=== PATIENT | male | born 1960 | race Caucasian/White ===

== ENCOUNTER 2020-01-19 09:02 | Day surgery (SDC) | payer MEDICAID ==
[2020-01-11 15:18] LABS: BASOPHILS % (AUTO) 0.7 % (0-1); EOSINOPHILS # (AUTO) 0.3 X10'3 (0-0.9); EOSINOPHILS % (AUTO) 4.6 % (0-6); LYMPHOCYTES # (AUTO) 1.8 X10'3 (1.1-4.8); LYMPHOCYTES % (AUTO) 29.5 % (21-51); MEAN CORPUSCULAR HGB CONC 34.3 g/dL (33.0-36.5); MEAN CORPUSCULAR VOLUME 93.2 FL (78-98); MEAN PLATELET VOLUME 9.5 FL (7.4-10.4); MONOCYTES # (AUTO) 0.6 X10'3 (0-0.9); MONOCYTES % (AUTO) 9.3 % (2-12); NEUTROPHILS # (AUTO) 3.4 X10'3 (1.8-7.7); NEUTROPHILS % (AUTO) 55.9 % (42-75); PRE OP HEMATOCRIT 44.1 % (42.0-52.0); PRE OP HEMOGLOBIN 15.1 g/dL (14.0-17.9); PRE OP PLATELET COUNT 186 X10'3 (140-440); RED BLOOD COUNT 4.73 X10'6 (4.70-6.10); RED CELL DISTRIBUTION WIDTH 12.7 % (11.5-14.5)
[2020-01-11 15:32] LABS: ALBUMIN 3.9 G/DL (3.4-5.0); ALKALINE PHOSPHATASE 105 IU/L (46-116); BLOOD UREA NITROGEN 19 MG/DL (7-18); CALCIUM 9.3 MG/DL (8.5-10.1); CHLORIDE 103 MMOL/L (99-107); PRE OP ALT 51 U/L (30-65); PRE OP ANION GAP 10 (8-16); PRE OP BILIRUB, TOTAL 0.4 MG/DL (0.0-1.0); PRE OP SODIUM 138 MMOL/L (135-145); TOTAL CARBON DIOXIDE 24.7 MMOL/L (24-32); TOTAL PROTEIN 7.9 G/DL (6.4-8.2); eGFR 76 ML/MIN
[2020-01-11 15:43] LABS: PRE OP AST 16 U/L (10-37); PRE OP POTASSIUM 3.9 MMOL/L (3.4-5.1)
[2020-01-11 15:47] LABS: PRE OP GLUCOSE 247 MG/DL (70-104)
[2020-01-19] VITALS (10 sets, daily range): BP systolic 130–164; BP diastolic 71–96
[~2020-01-19] VITALS: Ht 170.2 cm; Wt 99.8 kg
[~2020-01-19 09:02] MED LIST: ACET-1025 PO; ACET-3174 PO; FINA5TAB11 PO; NAPR220T67 PO; OXYB5TAB16 PO; TERA10CA4 PO; cefazolin/dext.iso 2gm/50ml 50 ML IV ONE; famotidine 20mg tablet PO ONE; ringers solution, lacted 1,000 ML IV SCH; vancomycin 1,500 MG in NS 300ml IV soln IV ONE
[2020-01-19] MEDS ORDERED: insulin regular, human 10 units/0.1 ml syringe SQ ONE (10:30)
--- NOTE | 2020-01-19 10:40 | NUR ---
PT HAS ELEVATED BLOOD SUGAR. DR KIRK AWARE, PT GIVEN REG INSULIN. 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 DR TRIVEDI AWARE.
[2020-01-19] MEDS ORDERED: triamcinolone acetonide 40mg/ml inj ONE (11:18)
[2020-01-19] MEDS ORDERED: BUPIVAcaine/PF 2.5mg/ml (0.25%) 10ml vial ONE (11:18)
[2020-01-19] MEDS ORDERED: sevoflurane 250ml liquid IH ONE (11:57)
[2020-01-19] MEDS ORDERED: insulin regular, human U-100 3ml vial - multi-dose ONE (12:06)
[2020-01-19] MEDS ORDERED: fentaNYL/PF 50MCG/1 ML 2ML syringe ONE ×2 (12:08→13:02)
[2020-01-19] MEDS ORDERED: midazolam 2 mg/2 ml injection ONE (12:08)
[2020-01-19] MEDS ORDERED: ondansetron/PF 4mg/2ml inj ONE (13:19)
[2020-01-19] MEDS ORDERED: glycopyrrolate 0.2mg/ml inj ONE (13:19)
[2020-01-19] MEDS ORDERED: rocuronium 10mg/ml inj IV ONE (13:19)
[2020-01-19] MEDS ORDERED: LIDOcaine 1%/PF 5ML 10 MG/ML VIAL ONE (13:19)
[2020-01-19] MEDS ORDERED: neostigmine methylsulfate 1 MG/ML 10ml vial ONE (13:19)
[2020-01-19] MEDS ORDERED: propofol inj 20 ML IV ONE (13:19)
[2020-01-19] MEDS ORDERED: ROPIVAcaine 0.5% (5mg/ml) 30ml vial ONE (13:19)
[2020-01-19] MEDS ORDERED: ePHEDrine 50MG/ML INJ. ONE (13:30)
--- NOTE | 2020-01-19 13:47 | NUR ---
Received from OR via [facility] , accompanied by Anesthesiologist YELENA and report given by Anesthesiolgist. PATIENT WITH 20G PIV IN RIGHT UE RUNNING LR AT 100. LEFT SHOULDER DRESSING IS CDI., NO DRAINAGE PRESENT. VSS. DENIES PAIN AT THIS TIME. 10L MASK ON WITH 100% SATURATIONS. Addendum: 01/19/20 at 1408 by Chaitanya Valdez RN, RN Amended: Links added.
--- NOTE | 2020-01-19 15:17 | NUR ---
PATIENT AND FAMILY AND THEY HAVE VERBALIZED UNDERSTANDING, OPPORTUNITY TO ASK QUESTIONS GIVEN AND PATIENT COMFORTABLE WITH DC. IV TAKEN OUT WITHOUT COMPLICATION. PATIENT HAS MET ALL DC CRITERIA FOR DC HOME. I HAVE REVIEWED D/C INSTRUCTIONS WITH OUT VIA WHEELCHAIR WHERE PATIENT WAS TAKEN HOME WITH ALL BELONGINGS. FAMILY GAVE PATIENT TRANSPORT HOME. Addendum: 01/19/20 at 1553 by Chaitanya Valdez RN, RN Amended: Links added.
== END 2020-01-19 15:17 | disposition home or self-care (01) ==
LOC: PAS 09:02
PROVIDERS: ATTEND Orthopaedic Surgery
DX: M75.42 Impingement syndrome of left shoulder (principal); M19.012 Primary osteoarthritis, left shoulder; M75.02 Adhesive capsulitis of left shoulder; M94.212 Chondromalacia, left shoulder; M65.812 Other synovitis and tenosynovitis, left shoulder; F32.9 Major depressive disorder, single episode, unspecified; G47.33 Obstructive sleep apnea (adult) (pediatric); N40.0 Benign prostatic hyperplasia without lower urinary tract symptoms; E66.8 Other obesity; Z68.34 Body mass index [BMI] 34.0-34.9, adult; Z88.5 Allergy status to narcotic agent; Z88.8 Allergy status to other drugs, medicaments and biological substances; Z20.828 Contact with and (suspected) exposure to other viral communicable diseases; G89.18 Other acute postprocedural pain; Z79.899 Other long term (current) drug therapy; Z87.891 Personal history of nicotine dependence; Z98.890 Other specified postprocedural states
CPT/HCPCS: 29821; 29823; 29824; 29826; 36415; 64415; 76937; 76942; 80053; 82948; 85025; 87635; 93005; J1815; J2250; J2405; J2704; J2710; J3010; J3301; J3370; J3490; J7040; A4215; A4565; A4618; A6250; A6449; A7000; J2795; J7120